=== PATIENT | female | born 1995 | race Caucasian/White ===

== ENCOUNTER 2019-06-25 11:22 | Inpatient (IN) | payer OTHER ==
[2019-06-25] MEDS ORDERED: MISOPROSTOL 200 MCG TAB PR ×2 (13:00→21:00)
[2019-06-25] MEDS ORDERED: CARBOPROST 250 MCG INJ IM ×2 (13:00→21:00)
[2019-06-25] MEDS ORDERED: METHYLERGONOVINE 0.2 MG INJ IM ×2 (13:00→21:00)
[2019-06-25] MEDS ORDERED: OXYTOCIN 30 UNITS/LR 500 ML IV ×2 (13:00→21:00)
[2019-06-25] MEDS ORDERED: CEFAZOLIN 2 GM/50 ML (PMX) 50 ML IVPB (13:00)
[2019-06-25 13:11] LABS: ADD MAN DIFF? NO
[2019-06-25] MEDS: LACTATED RINGER'S 1,000 ML IV (13:13)
[2019-06-25 13:14] LABS: WHITE BLOOD COUNT 6.5 10^3/ul (4.8-10.8)
[2019-06-25 13:14] LABS: BASOPHILS % 0.3 % (0.0-2.0); EOSINOPHILS % 0.5 % (0.0-7.0); HEMATOCRIT 38.9 % (37.0-47.0); HEMOGLOBIN 12.8 g/dl (12.0-16.0); LYMPHOCYTES # 1.2 10^3/ul (0.8-2.9); LYMPHOCYTES % 18.5 % (15.0-51.0); MEAN CORPUSCULAR HEMOGLOBIN 29.9 pg (29.0-33.0); MEAN CORPUSCULAR HGB CONC 32.9 g/dl (32.0-37.0); MEAN CORPUSCULAR VOLUME 90.9 fl (82.0-101.0); MEAN PLATELET VOLUME 12.4 fl (7.4-10.4); MONOCYTE # 0.4 10^3/ul (0.3-0.9); MONOCYTES % 6.7 % (0.0-11.0); NEUTROPHIL # 4.8 10^3/ul (1.6-7.5); NEUTROPHILS % 73.5 % (39.0-77.0); PLATELET COUNT 132 10^3/UL (140-415); RED BLOOD COUNT 4.28 10^6/ul (4.20-5.40); RED CELL DISTRIBUTION WIDTH 13.5 % (11.5-14.5)
[2019-06-25 13:33] LABS: INR 0.92; PROTIME 12.5 Sec (11.9-14.9)
[2019-06-25 13:34] LABS: PARTIAL THROMBOPLASTIN TIME 27.3 Sec (23.0-35.0)
[2019-06-25 14:02] LABS: HEPATITIS B SURFACE ANTIGEN NEGATIVE (NEGATIVE)
[2019-06-25] MEDS: AZITHROMYCIN 500MG/NS (PMX) 250 ML IVPB ×2 (15:00→17:11)
[2019-06-25] MEDS ORDERED: morphine SULFATE/PF (10 MG/10 ML) INJ (15:11)
[2019-06-25] MEDS ORDERED: FENTAnyl 50 MCG/ML VIAL (15:11)
[2019-06-25 15:32] LABS: RAPID PLASMA REAGIN NONREACTIVE (NR)
[2019-06-25] MEDS ORDERED: ONDANSETRON 4 MG INJ (15:59)
[2019-06-25] MEDS: OXYTOCIN 30 UNITS/LR 500 ML IV (17:10)
[2019-06-25] MEDS: KETOROLAC 30 MG INJ IV (17:18)
[2019-06-25] MEDS: ACETAMINOPHEN 500 MG TAB PO (17:18)
[2019-06-25] MEDS ORDERED: NA PHOSPHATE/BIPHOS 133 ML ENEMA PR ×2 (21:00→21:30)
[2019-06-25] MEDS: SENNA/DOCUSATE NA (8.6MG/50MG) TAB PO (21:00)
[2019-06-25] MEDS ORDERED: OXYCODONE/ACETAMINOPHEN (5/325) TAB PO (21:00)
[2019-06-25] MEDS ORDERED: HYDROCODONE/APAP (5/325) TAB PO (21:00)
[2019-06-25] MEDS ORDERED: NALOXONE (0.4 MG/ML) INJ IV (21:30)
[2019-06-25] MEDS ORDERED: ONDANSETRON 4 MG INJ IV (21:30)
[2019-06-25] MEDS ORDERED: HYDROmorphONE 0.5 MG/0.5 ML SYG IV ×2 (21:30)
[2019-06-25] MEDS ORDERED: ZOLPIDEM 5 MG TAB PO (21:30)
[2019-06-25] MEDS ORDERED: DIPHENHYDRAMINE 50 MG INJ IV (21:30)
[2019-06-25] MEDS: IBUPROFEN 800 MG TAB PO (22:00)
[2019-06-26] MEDS: CEFAZOLIN 2 GM/50 ML (PMX) 50 ML IVPB ×3 (00:07→17:48)
[2019-06-26] MEDS: LACTATED RINGER'S 1,000 ML IV (00:08)
[2019-06-26 05:00] LABS: ADD MAN DIFF? NO
[2019-06-26 05:13] LABS: WHITE BLOOD COUNT 7.3 10^3/ul (4.8-10.8)
[2019-06-26 05:13] LABS: BASOPHILS % 0.1 % (0.0-2.0); EOSINOPHILS % 0.6 % (0.0-7.0); HEMATOCRIT 37.1 % (37.0-47.0); HEMOGLOBIN 12.4 g/dl (12.0-16.0); LYMPHOCYTES # 1.6 10^3/ul (0.8-2.9); LYMPHOCYTES % 21.3 % (15.0-51.0); MEAN CORPUSCULAR HEMOGLOBIN 30.6 pg (29.0-33.0); MEAN CORPUSCULAR HGB CONC 33.4 g/dl (32.0-37.0); MEAN CORPUSCULAR VOLUME 91.6 fl (82.0-101.0); MEAN PLATELET VOLUME 12.9 fl (7.4-10.4); MONOCYTE # 0.6 10^3/ul (0.3-0.9); MONOCYTES % 7.8 % (0.0-11.0); NEUTROPHIL # 5.1 10^3/ul (1.6-7.5); NEUTROPHILS % 69.8 % (39.0-77.0); PLATELET COUNT 109 10^3/UL (140-415); RED BLOOD COUNT 4.05 10^6/ul (4.20-5.40); RED CELL DISTRIBUTION WIDTH 13.2 % (11.5-14.5)
[2019-06-26] MEDS: IBUPROFEN 800 MG TAB PO ×3 (06:00→20:17)
[2019-06-26] MEDS: SENNA/DOCUSATE NA (8.6MG/50MG) TAB PO ×2 (09:35→20:17)
[2019-06-26] MEDS: LANOLIN HPA 1 PKT TOP (09:35)
[2019-06-26] MEDS: BISACODYL 10 MG SUPP PR (14:01)
[2019-06-26] MEDS: KETOROLAC 30 MG INJ IV (14:20)
[2019-06-26] MEDS: CLINDAMYCIN 300 MG CAP PO (17:48)
[2019-06-27] MEDS: CLINDAMYCIN 300 MG CAP PO ×4 (00:12→18:52)
[2019-06-27] MEDS: IBUPROFEN 800 MG TAB PO ×3 (05:43→23:12)
[2019-06-27] MEDS: SENNA/DOCUSATE NA (8.6MG/50MG) TAB PO ×2 (09:25→23:13)
[2019-06-27] MEDS ORDERED: ACETAMINOPHEN 325 MG TAB PO (16:30)
[2019-06-27 17:47] LABS: RHOGAM PROFILE 1 1
[2019-06-28] MEDS: CLINDAMYCIN 300 MG CAP PO ×3 (00:20→12:00)
[2019-06-28] MEDS: IBUPROFEN 800 MG TAB PO (07:43)
[2019-06-28] MEDS: SENNA/DOCUSATE NA (8.6MG/50MG) TAB PO (09:00)
[2019-06-28] MEDS: MEASLES,MUMPS,RUBELLA VACCINE INJ SC* (09:00)
[2019-06-28] MEDS: DIPHTH/TET/ACEL PERTUSS (ADULT) 0.5 ML VIAL IM* (09:00)
== END 2019-06-28 11:45 | disposition home or self-care (01) | DRG 788 ==
LOC: L-D 11:22 → MS1 22:09
PROVIDERS: Obstetrics & Gynecology
PROC: 10D00Z1 Extraction of Products of Conception, Low, Open Approach (ICD-10-PCS; principal; 2019-06-25 14:00)
PROC: 3E033VJ Introduction of Other Hormone into Peripheral Vein, Percutaneous Approach (ICD-10-PCS; 2019-06-25 14:00)
DX: O65.5 Obstructed labor due to abnormality of maternal pelvic organs (principal); O34.211 Maternal care for low transverse scar from previous cesarean delivery; Z3A.38 38 weeks gestation of pregnancy; Z37.0 Single live birth
CPT/HCPCS: 85025; 85610; 85730; 86592; 86850; 86870; 86885; 86900; 86901; 87340; 90715; 99464